=== PATIENT | male | born 1990 | race Caucasian/White ===

== ENCOUNTER 2017-03-11 19:00 | Inpatient (IN) | payer OTHER ==
--- NOTE | ~2017-03-11 | PN ---
Unit #: [id number] #: [id number] Patient: IZA SMITH [id number] [facility] [address] [place] [address] [id number] I MR#: [id number] NAME: IZA SMITH ROOM: 32 Age: 26 Sex: M Admission Date: 03/11/2017 : 1990 Attending Physician: Mich Herrera M.D. Admitting Physician: Mich Herrera M.D. Primary Care Physician: Primary Care Physician No [facility] PROGRESS NOTES DATE OF SERVICE: 03/19/2017 SUBJECTIVE Mr. Quinn is a 26-year-old male, who was seen today and chart was reviewed and case was discussed with the staff. He appears to be doing much better aggression, hostility was noticed. MENTAL STATUS EXAMINATION Young male, who was casually dressed with fair personal hygiene, and appears to be in no acute distress or discomfort. He was awake and alert with impaired attention and concentration. His mood was anxious with a congruent affect. He denies any suicidal or homicidal ideation. His insight and judgment remain significantly impaired. TREATMENT PLAN We will continue him we will monitor his response to the medications and make further adjustments as needed. Dictated by... Maria Del Rosario Villa/kasia TD: 03/19/2017 15:54 JOB #: [id number] [facility] PROGRESS NOTES Page 1 of 1 X Mich Herrera MD X PROGRESS NOTE
--- NOTE | ~2017-03-11 | HP ---
Unit #: [id number] #: [id number] Patient: MOY SMITH [id number] [place] [address] [id number] MR#: [id number] NAME: MOY SMITH ROOM: 32 Age: 26 Sex: M Admission Date: 03/11/2017 : 1990 Attending Physician: Mich Herrera M.D. Admitting Physician: Mich Herrera M.D. Primary Care Physician: Primary Care Physician No HISTORY AND PHYSICAL HISTORY OF PRESENT ILLNESS Moy is a 26-year-old male admitted on 03/11/[address] [place] [address] for psychosis. He has previous admissions for the same. During the evaluation he was uncooperative unable to answer some questions appropriately and unwilling to answer others. Therefore, information is taken from staff reports and medical records. PAST MEDICAL HISTORY None documented. PAST SURGICAL HISTORY None documented. SOCIAL HISTORY He denies tobacco or alcohol use. Does report a history of occasional marijuana use. He is currently single and living with his father. FAMILY HISTORY Noncontributory. REVIEW OF SYSTEMS The patient is unwilling to answer any questions regarding his current health status. There have been no reports of nausea, vomiting or diarrhea and the patient appears generally well. PHYSICAL EXAMINATION GENERAL: Alert, disoriented, uncooperative, in no acute distress. VITAL SIGNS: The patient has refused all vital signs. CARDIAC: Regular rate and rhythm. No murmur, gallop or rub. RESPIRATORY: Clear to auscultation bilaterally. IMPRESSION Psychiatric admission. RECOMMENDATIONS Psychiatric, per psychiatrist. MEDICAL: I see no contraindications to participating in facility's activities. MEDICAL PROGNOSIS Unit #: [id number] #: [id number] Patient: MOY SMITH Good. MEDICAL CONDITION Stable. Dictated by... Sai Betts/raimundo TD: 03/12/2017 22:46 JOB #: [id number] HISTORY AND PHYSICAL Page 1 of 1 X FELICIA,ELISSA STEWART X HISTORY AND PHYSICAL
--- NOTE | ~2017-03-11 | PN ---
Unit #: [id number] #: [id number] Patient: IZA BRAUN [id number] [facility] [address] [place] [address] [id number] I MR#: [id number] NAME: IZA BRAUN ROOM: 32 Age: 26 Sex: M Admission Date: 03/11/2017 : 1990 Attending Physician: Mich Herrera M.D. Admitting Physician: Mich Herrera M.D. Primary Care Physician: Primary Care Physician Mary LYMAN NOTES DATE OF SERVICE: 03/13/2017 SUBJECTIVE Mr. Braun is a 26-year-old male who was seen today and chart was reviewed and case was discussed with the staff. He has been anxious, withdrawn, and rather seclusive to himself, and has been exhibiting bizarre behavior, blunted affect, thought blocking, paranoid ideations, and acute psychosis, though he has not shown any agitation or aggression. MENTAL STATUS EXAMINATION Young male who was casually dressed with fair personal hygiene, and appears to be in no acute distress or discomfort. He was awake and alert with impaired attention and concentration. His mood was anxious with a congruent affect. His speech was slow and restricted in content. His thought processes were disorganized with some looseness of associations. His insight and judgment remain significantly impaired. TREATMENT PLAN 1. We will continue him on his current medications and treatment protocol. We will monitor his response to the medications and make further adjustments as needed. 2. We will continue to follow up. Dictated by... Maria Del Rosario Villa/kasia TD: 03/14/2017 07:01 JOB #: [id number] Unit #: [id number] #: [id number] Patient: IZA BRAUN JONE PROGRESS NOTES Page 1 of 1 X Mich Herrera MD PROGRESS NOTE
--- NOTE | ~2017-03-11 | PN ---
Unit #: [id number] #: [id number] Patient: IZA BRAUN [id number] [facility] [address] [place] [address] [id number] I MR#: [id number] NAME: IZA BRAUN ROOM: 32 Age: 26 Sex: M Admission Date: 03/11/2017 : 1990 Attending Physician: Mich Herrera M.D. Admitting Physician: Mich Herrera M.D. Primary Care Physician: Primary Care Physician Mary BECERRIL PROGRESS NOTES DATE 03/17/2017 DISCUSSION Mr. Braun is a 26-year-old male who was seen today and chart was reviewed and case was discussed with the staff. He remains anxious, withdrawn, depressed, unkempt, disheveled, seclusive to himself with blunted affect, minimal interaction, poor cooperation with treatment recommendations including medications and as such remains a poor prognosis and does not appear to be showing much therapeutic response to treatment interventions. At this time will maintain him on his current level of precautions. Will continue to encourage him to show better compliance with treatment recommendations including medications and provide supportive therapy and will make further recommendations in his treatment. Dictated by... Maria Del Rosario Villa/shavon TD: 03/17/2017 22:06 JOB #: [id number] [facility] PROGRESS NOTES Page 1 of 1 X Mich Herrera MD X PROGRESS NOTE
--- NOTE | ~2017-03-11 | PA ---
Unit #: [id number] #: [id number] Patient: IZA BRAUN [id number] [facility] [address] [place] [address] [id number] Zoie MR#: [id number] NAME: IZA BRAUN ROOM: P132 Age: 26 Sex: M Admission Date: 03/11/2017 : 1990 Date of Assessment: 03/12/2017 Attending Physician: Mich Herrera M.D. Admitting Physician: Mich Herrera M.D. Primary Care Physician: Primary Care Physician No PSYCHIATRIC ASSESSMENT DATE OF SERVICE 03/12/2017. IDENTIFYING DATA Mr. Braun is a 26-year-old single male, who is a resident of [place], [place], and is known to us from previous encounter and was brought to the hospital by his father. CHIEF COMPLAINT "I ate rice. I was working at [employer], I quit." HISTORY OF PRESENT ILLNESS Mr. Braun is a 26-year-old male with history of mood disorder, who apparently has not been compliant with his medications and was brought to the hospital, but was seen to be extremely agitated, irritable, aggressive, hostile, and was tearing the blood pressure cuff off his arm before it was finished and yelling "don't touch me, get away from me." His father reports that the patient has not eaten in the last 3 days and he has not taken a bath in almost a week and father reports that when he was discharged from [facility], he was taking the medications and moved out on his own and about 2 weeks ago, he came back and was "like this." He reports that he took some of his medicines yesterday and then took some 3 days ago and has not been compliant with the medications on a regular basis, and father reports in the last 2 weeks he has stopped his medicine regimen and has been very sporadic and he was working at [employer] and then he stated that he quit about 3 weeks ago and reports that he called the police earlier today because the patient was refusing to get in the car to come and get help. He was then brought to the hospital; however, as soon as he got on the unit, he was seen to be extremely agitated, irritable, hostile, and showing physical aggression of violent outbursts and was attacking staff members and code was called and he was in seclusion and later was in restraints and intramuscular injection of Thorazine was given to cut down on agitation and aggression. SUBSTANCE ABUSE HISTORY The patient has history of experimentation with cannabis, but denies any other substance abuse issues. PAST PSYCHIATRIC HISTORY The patient has had a history of inpatient psychiatric hospitalizations at [facility] few times and has been diagnosed and treated for schizoaffective disorder, bipolar type, and review of the medical records indicate that he is supposed to be on a combination of Geodon and lithium, Unit #: [id number] #: [id number] Patient: IZA BRAUN but has been noncompliant with the medication and as such, has been decompensating. PAST MEDICAL HISTORY No acute or chronic medical illnesses. ALLERGIES No known medication allergies. PERSONAL AND SOCIAL HISTORY A 26-year-old male, who reports that he is single, unemployed, and currently has been living at home with his father and stepmother and brother and sisters and has fairly decent social support system. MENTAL STATUS EXAMINATION Young male, who was casually dressed with fair personal hygiene, appears to be in no acute distress or discomfort. He was awake and alert on interaction with intact orientation to time, place, and person. His mood was anxious and depressed with a congruent affect. His speech was slow and restricted in content. His thought processes were disorganized with some looseness of associations and flight of ideas and paranoid ideations and delusional behavior. His insight and judgment remain significantly impaired. DIAGNOSTIC IMPRESSION Psychiatric: Schizoaffective disorder, bipolar type, most recent episode manic with psychosis. Medical: None. Stressors: Moderate psychosocial stressors. TREATMENT PLAN 1. The patient has presented with a history of mood disorder and has been decompensating with increasing psychosis and agitation and aggression and has been seen to be a danger to self and as such, we will recommend inpatient hospitalization for safety and stabilization. We will start him back on his home medications. We will adjust the medications and monitor response. 2. Supportive therapy was provided to the patient. ESTIMATED LENGTH OF STAY 5 to 7 days. ABILITY TO HELP SELF Limited. WILLINGNESS TO HELP SELF The patient appears to be willing to help self. STRENGTHS 1. Communicative. 2. Cooperative. PROBLEMS 1. Chronic dysphoric symptoms. 2. Poor social support system. DISCHARGE CRITERIA This will be contingent upon the patient's ability to show resolution of Unit #: [id number] #: [id number] Patient: IZA BRAUN his katerina and psychosis and his ability to stay safe to himself, particularly after discharge from the hospital. Dictated by... Maria Del Rosario Villa/kasia TD: 03/12/2017 15:30 JOB #: [id number] PSYCHIATRIC ASSESSMENT Page 1 of 1 X Mich Herrera MD X PSYCHIATRIC ASSESSMENT
--- NOTE | ~2017-03-11 | PN ---
Unit #: [id number] #: [id number] Patient: IZA BRAUN [id number] [facility] [address] [place] [address] [id number] MR#: [id number] NAME: IZA BRAUN. ROOM: 32 Age: 26 Sex: M Admission Date: 03/11/2017 : 1990 Attending Physician: Mich Herrera M.D. Admitting Physician: Mich Herrera M.D. Primary Care Physician: Primary Care Physician Mary BECERRIL PROGRESS NOTES DATE 03/14/2017 DISCUSSION Mr. Braun is a 26-year-old, male who was seen today and chart was reviewed and case was discussed with the staff. He has been anxious, withdrawn rather seclusive to himself. Meanwhile, he has been cooperative with treatment recommendations. He has been taking medications and tolerating them fairly well with no reported side effects. MENTAL STATUS EXAM Young male who was casually dressed with fair personal hygiene, appears to be in no acute distress or discomfort. He was awake and alert with impaired attention and concentration. His mood was anxious and depressed with congruent affect. His speech was slow and restricted in content. He denies any suicidal or homicidal ideation. His insight and judgement remains slightly impaired. TREATMENT PLAN 1. We will continue him on his current medications and treatment protocol. We will monitor his response to the medication and make further adjustments as needed. 2. We will continue to follow up. Dictated by... Maria Del Rosario Villa/raimundo TD: 03/15/2017 03:30 JOB #: [id number] Unit #: [id number] #: [id number] Patient: IZA BRAUN PROGRESS NOTES Page 1 of 1 X Mich Herrera MD PROGRESS NOTE
--- NOTE | ~2017-03-11 | PN ---
Unit #: [id number] #: [id number] Patient: IZA BRAUN [id number] [facility] [address] [place] [address] [id number] I MR#: [id number] NAME: IZA BRAUN ROOM: [facility] Age: 26 Sex: M Admission Date: 03/11/2017 : 1990 Attending Physician: Mich Herrera M.D. Admitting Physician: Mich Herrera M.D. Primary Care Physician: Primary Care Physician Mary BECERRIL PROGRESS NOTES DATE 03/16/2017 DISCUSSION Mr. Braun is a 26-year-old male who was seen today and chart was reviewed and case was discussed with the staff. He remains anxious, withdrawn, depressed and seclusive to himself and has not been very cooperative with the treatment though he informed me this morning that he did stop taking the medications and compliance has been a significant issue and he was encouraged to take his medicine. MENTAL STATUS EXAMINATION Young male who was casually dressed with fair personal hygiene and appears to be in no acute distress or discomfort. He was awake and alert with fair attention and concentration. His mood was anxious with congruent affect. His speech is slow and tangential. His thought processes were disorganized and flight of ideas. His insight and judgement remains slightly impaired. TREATMENT PLAN 1. Will continue his current medications and treatment protocol. Will monitor response to the medications and make further adjustments as needed. 2. Will continue to follow up. Dictated by... Maria Del Rosario Villa/shavon TD: 03/16/2017 22:39 JOB #: [id number] Unit #: [id number] #: [id number] Patient: IZA BRAUN JONE PROGRESS NOTES Page 1 of 1 X Mich Herrera MD PROGRESS NOTE
--- NOTE | ~2017-03-11 | PN ---
Unit #: [id number] #: [id number] Patient: IZA BRAUN [id number] [facility] [address] [place] [address] [id number] I MR#: [id number] NAME: IZA BRAUN ROOM: [facility] Age: 26 Sex: M Admission Date: 03/11/2017 : 1990 Attending Physician: Mich Herrera M.D. Admitting Physician: Mich Herrera M.D. Primary Care Physician: Primary Care Physician Mary LYMAN NOTES DATE OF SERVICE: 03/14/2017 SUBJECTIVE Mr. Braun is a 26-year-old male with mood disorder and substance abuse, who was seen today and chart was reviewed, and case was discussed with the staff. The patient has not taking care of himself encouraged to take the medication and he comply with the treatment recommendation and would like to get him back home. MENTAL STATUS EXAMINATION Young male who was casually dressed with poor personal hygiene, appears to be in no acute distress or discomfort. He was awake and alert with impaired attention and concentration. His mood was anxious with a congruent affect. His speech was slow and restricted in content. His thought processes were disorganized with some looseness of associations, thought blocking, and paranoid ideations. His insight and judgment remain significantly impaired. TREATMENT PLAN 1. We will continue him on his current medications and treatment protocol. We will monitor his response and encourage him to show better compliance to treatment recommendations. 2. We will continue to follow up. Dictated by... Maria Del Rosario Villa/sheldonl TD: 03/15/2017 17:35 JOB #: [id number] Unit #: [id number] #: [id number] Patient: IZA BRAUN JONE PROGRESS NOTES Page 1 of 1 X Mich Herrera MD PROGRESS NOTE
--- NOTE | ~2017-03-11 | DS ---
Unit #: [id number] #: [id number] Patient: IZA BRAUN [id number] [facility] [address] [place] [address] [id number] I MR#: [id number] NAME: IZA BRAUN ROOM: 32 Age: 26 Sex: M Admission Date: 03/11/2017 : 1990 Discharge Date: 03/20/2017 Attending Physician: Mich Herrera M.D. Primary Care Physician: Primary Care Physician No DISCHARGE SUMMARY IDENTIFYING DATA Mr. Braun is a 26-year-old single male, who is a resident of [place], [place], and is known to us from previous encounter, and was brought to the hospital by his father. DISCHARGE DIAGNOSES Psychiatric: Schizoaffective disorder, bipolar type, most recent episode, manic with psychosis. Medical: None. Stressors: Mild psychosocial stressors. HISTORY OF PRESENT ILLNESS Please see initial psychiatric evaluation for details. PAST PSYCHIATRIC HISTORY Please see initial psychiatric evaluation for details. PAST MEDICAL HISTORY Please see initial psychiatric evaluation for details. HOSPITAL COURSE The patient was admitted to the adult psychiatric unit at [facility] and was oriented to the hospital environment. Routine p.r.n. medications were initiated, and he was started back on his home medications including Geodon and lithium and initially was seen to be rather resistant to care and was refusing to take medications; however, he was more compliant with the medications and was able to show a decent therapeutic response and was not seen to be agitated or aggressive and was not seen to be danger to self or anyone else, and as such, it was decided that he will be discharged home and will continue treatment on an outpatient basis. DISCHARGE MEDICATIONS Geodon 40 mg at bedtime and lithium 450 mg b.i.d. DISCHARGE CONDITION Stable. PROGNOSIS Fair. Dictated by... Mich Herrera M.D. Unit #: [id number] #: [id number] Patient: IZA BRAUN IAA/modl TD: 03/20/2017 06:37 JOB #: [id number] DISCHARGE SUMMARY Page 1 of 1 X Mich Herrera MD DISCHARGE SUMMARY
== END 2017-03-20 10:30 | disposition home or self-care (01) | DRG 885 ==
LOC: P1S 22:36
DX: F25.0 Schizoaffective disorder, bipolar type (principal)
CPT/HCPCS: J1200; J1630; J2060; J3230